=== PATIENT | female | born 1995 | race Two or more races ===

== ENCOUNTER → 2025-02-25 | Outpatient (CLI) | payer MEDICAID, SELFPAY ==
--- NOTE | 2025-02-25 09:30 | XR_ITS ---
Examination: Upper GI series with KUB Esophagram standard Fluoroscopy 15 spot fluoroscopic films of the esophagus and stomach Exam date and time: February 25, 2025 at 1005 hours INDICATIONS: Preop gastric bypass surgery TECHNIQUE AND FINDINGS: Respiratory Care Specialist AP supine abdomen nonobstructive bowel gas pattern Patient swallowed thin barium with 16 spot fluoroscopic films of the esophagus and stomach Primary peristaltic esophageal waves. No esophageal lesion or reflux No gastric mass deformity or ulceration Duodenal bulb expands symmetrically Duodenal sweep and small bowel visualized unremarkable Fluoroscopy 0.42 minutes IMPRESSION: Negative examination
== END | disposition home or self-care (01) ==
LOC: CDIM 09:14
PROVIDERS: Referring Provider Specialist; Visit Provider Specialist
DX: K21.9 Gastro-esophageal reflux disease without esophagitis (principal)
CPT/HCPCS: 74240; A4699